=== PATIENT | female | born 1965 | race Caucasian/White ===

== ENCOUNTER 2019-10-25 10:54 | Outpatient (CLI) | payer OTHER, SELFPAY | END 2019-10-25 10:55 | disposition home or self-care (01) | LOC: RT 10:57 | PROVIDERS: Family Provider Family Medicine; PCP Family Medicine; Visit Provider Dermatology | DX: R06.02 Shortness of breath (principal) | CPT/HCPCS: 94060; J7611 ==

== ENCOUNTER → 2022-03-24 11:29 | Outpatient (BNVA) | payer MEDICAID, SELFPAY | PROVIDERS: Family Provider Family Medicine; PCP Family Medicine; Visit Provider Emergency Medicine | DX: R39.9 Unspecified symptoms and signs involving the genitourinary system (principal); N39.0 Urinary tract infection, site not specified | CPT/HCPCS: 81000 ==

== ENCOUNTER → 2022-04-22 13:18 | Outpatient (BNVA) | payer MEDICAID, SELFPAY | PROVIDERS: Family Provider Family Medicine; PCP Family Medicine; Visit Provider Family Medicine | DX: J44.9 Chronic obstructive pulmonary disease, unspecified (principal); R07.9 Chest pain, unspecified; R06.00 Dyspnea, unspecified; J44.1 Chronic obstructive pulmonary disease with (acute) exacerbation | CPT/HCPCS: 71046 ==

== ENCOUNTER → 2022-04-25 11:32 | Outpatient (BNVA) | payer MEDICAID, SELFPAY | PROVIDERS: Family Provider Family Medicine; PCP Family Medicine; Visit Provider Surgery | DX: Z12.11 Encounter for screening for malignant neoplasm of colon (principal) | CPT/HCPCS: 99024 ==

== ENCOUNTER → 2022-05-03 11:43 | Outpatient (BNVA) | payer MEDICAID, SELFPAY | PROVIDERS: Family Provider Family Medicine; PCP Family Medicine; Visit Provider Family Medicine | DX: J44.1 Chronic obstructive pulmonary disease with (acute) exacerbation (principal); N89.8 Other specified noninflammatory disorders of vagina; Z01.419 Encounter for gynecological examination (general) (routine) without abnormal findings | CPT/HCPCS: 87070; 87205; 88175 ==

== ENCOUNTER → 2022-07-07 16:46 | Outpatient (BNVA) | payer MEDICAID, SELFPAY | PROVIDERS: Family Provider Family Medicine; PCP Family Medicine; Visit Provider Family Medicine | DX: R52 Pain, unspecified (principal); R50.9 Fever, unspecified | CPT/HCPCS: 87400; 87426 ==

== ENCOUNTER → 2023-04-15 07:48 | Outpatient (BNVA) | payer MEDICAID, SELFPAY | PROVIDERS: Family Provider Family Medicine; PCP Family Medicine; Visit Provider Family Medicine | DX: Z01.419 Encounter for gynecological examination (general) (routine) without abnormal findings (principal); N89.8 Other specified noninflammatory disorders of vagina; Z13.6 Encounter for screening for cardiovascular disorders; J43.1 Panlobular emphysema; Z12.31 Encounter for screening mammogram for malignant neoplasm of breast; F17.219 Nicotine dependence, cigarettes, with unspecified nicotine-induced disorders; Z12.11 Encounter for screening for malignant neoplasm of colon; R79.89 Other specified abnormal findings of blood chemistry | CPT/HCPCS: 80053; 80061; 84443; 85025; 87070; 87205 ==

== ENCOUNTER → 2023-04-15 08:30 | Outpatient (BNVA) | payer MEDICAID, SELFPAY | PROVIDERS: Family Provider Family Medicine; PCP Family Medicine; Visit Provider Family Medicine | DX: N89.8 Other specified noninflammatory disorders of vagina (principal); Z13.6 Encounter for screening for cardiovascular disorders; J43.1 Panlobular emphysema; Z01.419 Encounter for gynecological examination (general) (routine) without abnormal findings; Z12.31 Encounter for screening mammogram for malignant neoplasm of breast; F17.219 Nicotine dependence, cigarettes, with unspecified nicotine-induced disorders; Z12.11 Encounter for screening for malignant neoplasm of colon; R79.89 Other specified abnormal findings of blood chemistry | CPT/HCPCS: 84439 ==

== ENCOUNTER → 2023-04-29 10:02 | Outpatient (BNVA) | payer MEDICAID, SELFPAY | PROVIDERS: Family Provider Family Medicine; PCP Family Medicine; Visit Provider Nurse Practitioner Family | DX: R51.9 Headache, unspecified (principal) | CPT/HCPCS: 87426 ==

== ENCOUNTER 2023-05-02 10:27 | Outpatient (CLI) | payer MEDICAID, SELFPAY ==
--- NOTE | 2023-05-02 10:45 | CT_ITS ---
WS: [id number] LDCT LUNG CANCER SCREENING TECHNIQUE: Noncontrast CT of the chest with coronal and sagittal reformatted images. CLINICAL INFORMATION: screening COMPARISON: CT chest 2017 DLP: 47.77 mGy.cm DIvol: Mean CTDIvol: 0.60 (mGy) All CT scans at [facility] use at least one of these dose optimization techniques: automat ed exposure control; mA and/or kV adjustment per patient size (includes targeted exams where dose is matched to clinical indication); or iterative reconstruction. FINDINGS: Tiny noncalcified nodule right upper lobe laterally. Slight subsegmental atelectasis in the lingula and right middle lobe. Mild thoracic curve. Mild thoracic kyphosis. Hypertrophic changes tho racic spine. Normal caliber thoracic aorta. Aortic calcification. No mediastinal or hilar lymphadenopathy. Normal GE junction. No axillary lymphadenopathy. Normal GE junction. Noncontrast spleen appears normal. Adrenal glands are normal. IMPRESSION: CT/CT lung screening [id number] LUNG-RADS: 2-Benign Appearance or Behavior FOLLOW UP: 12 Month: Continue annual screening with LDCT
--- NOTE | 2023-05-02 11:11 | MM_ITS ---
WS: [id number] BILATERAL 3D TOMOSYNTHESIS DIGITAL SCREENING MAMMOGRAPHY WITH CAD CLINICAL INFORMATION: SCREEN HISTORY: Screening mammogram. No current complaints. COMPARISON: 2019 TECHNIQUE: Bilateral CC and MLO views. FINDINGS: The breasts are composed of heterogeneous fibroglandular density tissue, which can limit the detectio n of small underlying mass lesions. No suspicious mass, asymmetry, calcifications, or architectural d istortion. No evidence of malignancy. Incidental punctate calcifications. Stable bilateral intramamma ry lymph nodes. IMPRESSION: MM/[place] [id number] BI-RADS: 2-Benign FOLLOW UP: 1 Year Follow-up Recommend return to annual screening mammography.
== END 2023-05-02 10:28 | disposition home or self-care (01) ==
PROVIDERS: PCP Family Medicine; Visit Provider Family Medicine
DX: Z12.31 Encounter for screening mammogram for malignant neoplasm of breast (principal); Z12.2 Encounter for screening for malignant neoplasm of respiratory organs; F17.219 Nicotine dependence, cigarettes, with unspecified nicotine-induced disorders
CPT/HCPCS: 71271; 77063; 77067

== ENCOUNTER → 2023-05-29 13:10 | Outpatient (BNVA) | payer MEDICAID, SELFPAY | PROVIDERS: PCP Family Medicine; Visit Provider Family Medicine | DX: E03.9 Hypothyroidism, unspecified (principal) | CPT/HCPCS: 84439; 84443 ==

== ENCOUNTER 2023-08-03 11:37 | Emergency (ER) | payer MEDICAID, SELFPAY ==
--- NOTE | 2023-08-03 11:47 | XRR_ITS ---
PROCEDURE INFORMATION: Exam: XR Right Hand Exam date and time: 08/03/2023 12:25 PM Age: 58 years old Clinical indication: Injury or trauma; Fall; Patient HX: RT hand/wrist pain/swelling/brusing post foosh TECHNIQUE: Imaging protocol: Radiologic exam of the right hand. Views: 3 or more views. COMPARISON: No relevant prior studies available. FINDINGS: Bones/joints: Comminuted fractures through the distal radius without significant displacement with horizontal, oblique, and vertical components. There is an oblique nondisplaced fracture through the base of the ulnar styloid. Multi-articular primary osteoarthritic changes including joint space narrowing, subchondral cystic/sclerotic changes, and marginal osteophyte formations. Soft tissues: Edema and/or hematoma is present in the soft tissues adjacent to the fracture sites. XR/XR hand RT min 3V* [id number] IMPRESSION: There are fractures through the distal radius and ulna as described above with adjacent soft tissue changes.
--- NOTE | 2023-08-03 11:47 | XRR_ITS ---
PROCEDURE INFORMATION: Exam: XR Right Wrist Exam date and time: 08/03/2023 12:25 PM Age: 58 years old Clinical indication: Injury or trauma; Fall; Patient HX: RT hand/wrist pain/swelling/brusing post foosh TECHNIQUE: Imaging protocol: Radiologic exam of the right wrist. Views: 3 or more views. COMPARISON: No relevant prior studies available. FINDINGS: Bones/joints: Comminuted nondisplaced hairline fractures through the distal radius with horizontal, oblique, and vertical components. Predominantly horizontally oriented. There is an oblique nondisplaced fracture through the base of the ulnar styloid. Multi-articular primary osteoarthritic changes including joint space narrowing, subchondral cystic/sclerotic changes, and marginal osteophyte formations. Soft tissues: Edema and/or hematoma is present in the soft tissues adjacent to the fracture sites. XR/XR wrist RT min 3V* [id number] IMPRESSION: There are fractures through the distal radius and ulna as described above.
[2023-08-03 11:48] VITALS: BP 148/91; PULSE 80; RESP 17; TEMP 37.2; O2SAT 98; BMI 19.5
--- NOTE | 2023-08-03 11:48 | ED_ITS ---
HPI - Trauma General: Stated Complaint: Wrist pain Time Seen by Provider: 08/03/23 11:44 History of Present Illness: 58-year-old female presents emergency room with right hand and wrist pain that started yesterday after sustaining a fall around 5 PM. Patient described pain as throbbing/sharp sensation with severity of 7 out of 10. Increased pain with range of motion of movement. PFS ED PFSH: Medical History COPD (chronic obstructive pulmonary disease) Surgical History H/O tubal ligation Family History Other Cancer Chronic kidney disease (CKD) Diabetes Hyperlipidemia Hypertension Lung disease Denies family history of CAD (coronary artery disease) Clotting disorder Dementia Psychiatric illness Suicide Anesthesia complication Bleeding disorder Family history of premature coronary artery disease Stroke Social History Smoking and tobacco/nicotine status: current every day tobacco/nicotine user cigarettes Packs smoked per day: 0.5 Years cigarettes smoked: 45 Alcohol intake: current Alcohol intake frequency: few times a week Alcohol type: beer Substance/Drug Use: never Lives independently: No Household members: none Marital status: / Discharge Plan Discharge Condition: Stable Prescriptions: No Action Anoro Ellipta 62.5-25 mcg/actuation blister with device 1 inh inhalation DAILY Qty: 60 5RF Premarin 0.625 mg/gram cream See Rx Instructions vaginal .COMPLEX Qty: 30 3RF Rx Instructions: vaginally; Use nightly for two weeks, then three times a week at night albuterol sulfate 90 mcg/actuation HFA aerosol inhaler 2 puff inhalation Q6H PRN (Reason: shortness of breath or wheezing) Qty: 6.7 0RF levothyroxine 25 mcg capsule 25 mcg PO DAILY Qty: 90 1RF Referrals: Sharon Brown DO [Primary Care Provider] - Coding Level of Care Code ED Boiler Coverer Helper for Latoya Sandra
--- NOTE | 2023-08-03 11:50 | W.ED.UPPEXIN ---
HPI - Extremity Injury (Upper) General: Chief Complaint: Extremity Injury, Upper Stated Complaint: Wrist pain Time Seen by Provider: 08/03/23 11:44 Source: patient Mode of arrival: ambulatory Limitations: no limitations History of Present Illness: 58-year-old female states that she tripped over her dog last night landed on her right wrist. States she had right wrist pain since then pain sharp in nature rates it a 7 out of 10 states it is worse with movement improved with rest denies any other injuries from her fall. Associated symptoms: Denies neck pain Review of Systems Const: Denies: fever(s), chills, body aches or change in appetite ENMT: Denies: throat pain or dental pain Card: Denies: chest pain Resp: Denies: dyspnea GI: Denies: abdominal pain, nausea, vomiting or diarrhea : Denies: dysuria Musc: Reports: extremity pain; Denies: neck pain or back pain Skin/Breast: Denies: rash Neuro: Denies: headache(s) PFSH ED PFSH: Medical History COPD (chronic obstructive pulmonary disease) Surgical History H/O tubal ligation Family History Other Cancer Chronic kidney disease (CKD) Diabetes Hyperlipidemia Hypertension Lung disease Denies family history of CAD (coronary artery disease) Clotting disorder Dementia Psychiatric illness Suicide Anesthesia complication Bleeding disorder Family history of premature coronary artery disease Stroke Social History Smoking and tobacco/nicotine status: current every day tobacco/nicotine user cigarettes Packs smoked per day: 0.5 Years cigarettes smoked: 45 Alcohol intake: current Alcohol intake frequency: few times a week Alcohol type: beer Substance/Drug Use: never Lives independently: No Household members: none Marital status: / Physical Exam Const: COMMON NORMALS: no acute distress, patient oriented x3 and healthy appearing HENMT: COMMON NORMALS: normocephalic and atraumatic HEAD & SCALP: normocephalic and atraumatic Neck/C-Spine: COMMON NORMALS: full ROM and supple Chest: COMMONS NORMALS: normal inspection of the chest Resp: COMMON NORMALS: normal respiratory effort Cardio: COMMON NORMALS: regular rate, regular rhythm and No murmurs present (Cardio) RATE: regular rate RHYTHM: regular rhythm Extremity: NARRATIVE EXTREMITY EXAM: Tenderness over right wrist distal pulses sensation intact Neuro: COMMON NORMALS: patient oriented x3, moves all extremities and no focal motor deficits Psych: COMMON NORMALS: mental status grossly normal, Normal thought process present and cooperative THOUGHT PROCESS: Normal thought process present Skin: COMMON NORMALS: no rashes or lesions noted and no wounds GENERAL SKIN EXAM: no rashes or lesions noted Course Vital Signs: Vital signs: Vital Signs Temperature 98.9 F 08/03/23 11:48 Pulse Rate 80 08/03/23 11:48 Respiratory Rate 18 08/03/23 11:55 Blood Pressure 148/91 08/03/23 11:48 Pulse Oximetry 94 08/03/23 11:55 Oxygen Delivery Me thod Room Air 08/03/23 11:48 MDM - Extremity Injury (Upper) Medical Decision Making Patient presents here with a right wrist fracture from a fall we will place in a splint we will get follow-up with orthopedics. Medical Records I reviewed the patient's medical records. XR interpretation done by ED provider, pending radiology final review ED provider radiology interpretation(s): xrwrist: distal radius fx Discharge Plan Discharge Patient Disposition: Home Clinical Impression: Fracture of wrist Condition: Stable Prescriptions: New hydrocodone-acetaminophen 5-325 mg tablet 1 tab PO Q6H PRN (Reason: pain) Qty: 14 0RF No Action Anoro Ellipta 62.5-25 mcg/actuation blister with device 1 inh inhalation DAILY Qty: 60 5RF Premarin 0.625 mg/gram cream See Rx Instructions vaginal .COMPLEX Qty: 30 3RF Rx Instructions: vaginally; Use nightly for two weeks, then three times a week at night albuterol sulfate 90 mcg/actuation HFA aerosol inhaler 2 puff inhalation Q6H PRN (Reason: shortness of breath or wheezing) Qty: 6.7 0RF levothyroxine 25 mcg capsule 25 mcg PO DAILY Qty: 90 1RF Discharge Orders: Discharge ED (Routine); Ordered 08/03/23 Ordered By: Jason Montes Referrals: Ham Jim, [Physician] - 1-3 days Sharon Brown DO [Primary Care Provider] - Discharge Diet: Advance as tolerated Discharge Activity: Resume usual activity Patient Instructions: Wrist Fracture in Adults (ED), Opioid Safety Coding Level of Care Code ED Foreign Languages Professor for Latoya Sandra
[2023-08-03 11:55] VITALS: RESP 18; O2SAT 94
[2023-08-03] MEDS: oxyCODONE-APAP 5-325 mg Tablet 1 TAB PO (11:55)
--- NOTE | 2023-08-04 07:20 | DCPLANNER ---
Message sent to Ortho for follow up on a wrist Fx.
== END 2023-08-03 13:23 | disposition home or self-care (01) ==
PROVIDERS: Emergency Provider Emergency Medicine; PCP Family Medicine
DX: S52.591A Other fractures of lower end of right radius, initial encounter for closed fracture (principal); S52.614A Nondisplaced fracture of right ulna styloid process, initial encounter for closed fracture; W01.0XXA Fall on same level from slipping, tripping and stumbling without subsequent striking against object, initial encounter; J44.9 Chronic obstructive pulmonary disease, unspecified; F17.210 Nicotine dependence, cigarettes, uncomplicated
CPT/HCPCS: 73110; 73130; 99283

== ENCOUNTER → 2023-08-05 14:25 | Outpatient (BNVA) | payer MEDICAID, SELFPAY | PROVIDERS: PCP Family Medicine; Referring Provider Emergency Medicine; Visit Provider Physician Assistant | DX: S52.501A Unspecified fracture of the lower end of right radius, initial encounter for closed fracture (principal); S52.614A Nondisplaced fracture of right ulna styloid process, initial encounter for closed fracture; W01.0XXA Fall on same level from slipping, tripping and stumbling without subsequent striking against object, initial encounter | CPT/HCPCS: 73110 ==

== ENCOUNTER 2023-08-05 15:13 | Outpatient (CLI) | payer MEDICAID, SELFPAY | END 2023-08-05 15:14 | disposition home or self-care (01) | LOC: SPT 15:14 | PROVIDERS: PCP Family Medicine; Visit Provider Physician Assistant | DX: Z46.89 Encounter for fitting and adjustment of other specified devices (principal); S52.501D Unspecified fracture of the lower end of right radius, subsequent encounter for closed fracture with routine healing; S52.601D Unspecified fracture of lower end of right ulna, subsequent encounter for closed fracture with routine healing; X58.XXXD Exposure to other specified factors, subsequent encounter | CPT/HCPCS: 97760; L3982 ==

== ENCOUNTER → 2023-09-24 11:06 | Outpatient (BNVA) | payer MEDICAID, SELFPAY | PROVIDERS: PCP Family Medicine; Visit Provider Physician Assistant | DX: S52.501D Unspecified fracture of the lower end of right radius, subsequent encounter for closed fracture with routine healing (principal); X58.XXXD Exposure to other specified factors, subsequent encounter; S52.601D Unspecified fracture of lower end of right ulna, subsequent encounter for closed fracture with routine healing | CPT/HCPCS: 73110 ==

== ENCOUNTER → 2023-10-21 15:15 | Outpatient (BNVA) | payer MEDICAID, SELFPAY | PROVIDERS: PCP Family Medicine; Visit Provider Orthopaedic Surgery | DX: S52.501D Unspecified fracture of the lower end of right radius, subsequent encounter for closed fracture with routine healing; S52.601D Unspecified fracture of lower end of right ulna, subsequent encounter for closed fracture with routine healing; X58.XXXD Exposure to other specified factors, subsequent encounter | CPT/HCPCS: 73110 ==

== ENCOUNTER → 2023-12-01 13:07 | Outpatient (BNVA) | payer MEDICAID, SELFPAY | PROVIDERS: PCP Family Medicine; Visit Provider Family Medicine | DX: E03.9 Hypothyroidism, unspecified (principal) | CPT/HCPCS: 84443 ==

== ENCOUNTER → 2023-12-30 15:26 | Outpatient (BNVA) | payer MEDICAID, SELFPAY | PROVIDERS: PCP Family Medicine; Referring Provider Family Medicine; Visit Provider Nurse Practitioner Women's Health | DX: N89.8 Other specified noninflammatory disorders of vagina (principal) | CPT/HCPCS: 87491; 87591 ==

== ENCOUNTER → 2024-01-01 14:40 | Outpatient (BNVA) | payer MEDICAID, SELFPAY | PROVIDERS: PCP Family Medicine; Visit Provider Orthopaedic Surgery | DX: S52.501D Unspecified fracture of the lower end of right radius, subsequent encounter for closed fracture with routine healing (principal); S52.601D Unspecified fracture of lower end of right ulna, subsequent encounter for closed fracture with routine healing; X58.XXXD Exposure to other specified factors, subsequent encounter | CPT/HCPCS: 73110 ==

== ENCOUNTER → 2024-02-05 13:28 | Outpatient (BNVA) | payer MEDICAID, SELFPAY | PROVIDERS: PCP Family Medicine; Visit Provider Orthopaedic Surgery | DX: S52.501D Unspecified fracture of the lower end of right radius, subsequent encounter for closed fracture with routine healing (principal); S52.601D Unspecified fracture of lower end of right ulna, subsequent encounter for closed fracture with routine healing; M25.531 Pain in right wrist; X58.XXXD Exposure to other specified factors, subsequent encounter | CPT/HCPCS: 73110 ==

== ENCOUNTER → 2024-03-26 19:04 | Outpatient (BNVA) | payer MEDICAID, SELFPAY | PROVIDERS: PCP Family Medicine; Visit Provider Emergency Medicine | DX: R39.9 Unspecified symptoms and signs involving the genitourinary system (principal) | CPT/HCPCS: 81000 ==

== ENCOUNTER → 2024-04-21 11:52 | Outpatient (BNVA) | payer MEDICAID, SELFPAY | PROVIDERS: PCP Family Medicine; Visit Provider Nurse Practitioner Family | DX: Z76.89 Persons encountering health services in other specified circumstances (principal); E03.9 Hypothyroidism, unspecified; R53.83 Other fatigue; R30.0 Dysuria | CPT/HCPCS: 81000 ==

== ENCOUNTER 2024-04-26 10:38 | Emergency (ER) | payer MEDICAID, SELFPAY ==
[2024-04-26 10:44] VITALS: BP 151/96; PULSE 86; TEMP 36.4; O2SAT 98; BMI 19.5
--- NOTE | 2024-04-26 11:00 | ED_ITS ---
HPI - Female Genitourinary 2 General: Chief complaint: Urogenital-Female Stated complaint: bladder trouble Time Seen by Provider: 04/26/24 10:49 Source: patient Mode of arrival: ambulatory Limitations: no limitations History of Present Illness: 58-year-old female states that she is robles ving some bilateral flank pain and weakness states been going on for weeks states she has been on antibiotics for a UTI. She states she is feels fatigued she denies any severe pain rates pain a 2 out of 10 denies any vaginal discharge denies any vomiting or diarrhea. Associated symptoms: Deny abdominal pain, headache(s) or nausea Review of Systems 2 Const: Denies: fever(s), chills, body aches or change in appetite ENMT: Denies: throat pain or dental pain Card: Denies: chest pain Resp: Denies: dyspnea GI: Denies: abdominal pain, nausea, vomiting or diarrhea : Reports: flank pain and dysuria Musc: Denies: neck pain or back pain Skin/Breast: Denies: rash Neuro: Denies: headache(s) PFSH ED 2 PFSH: Medical History Fatigue Hypothyroidism COPD (chronic obstructive pulmonary disease) Surgical History H/O tubal ligation Family History Other Cancer Chronic kidney disease (CKD) Diabetes Hyperlipidemia Hypertension Lung disease Denies family history of CAD (coronary artery disease) Clotting disorder Dementia Psychiatric illness Suicide Anesthesia complication Bleeding disorder Family history of premature coronary artery disease Stroke Social History Smoking and tobacco/nicotine status: current every day tobacco/nicotine user cigarettes Packs smoked per day: 0.5 Years cigarettes smoked: 45 Alcohol intake: current Alcohol intake frequency: few times a week Alcohol type: beer Substance/Drug Use: never Lives independently: No Household members: none Marital status: / Physical Exam 2 Const: COMMON NORMALS: no acute distress, patient oriented x3 and healthy appearing HENMT: COMMON NORMALS: normocephalic and atraumatic HEAD & SCALP: n ormocephalic and atraumatic Neck/C-Spine: COMMON NORMALS: full ROM and supple Chest: COMMONS NORMALS: normal inspection of the chest Resp: COMMON NORMALS: normal respiratory effort Cardio: COMMON NORMALS: regular rate, regular rhythm and No murmurs present (Cardio) RATE: regular rate RHYTHM: regular rhythm GI: COMMON NORMALS: Normal to inspection, nondistended, normoactive bowel sounds present, Soft to palpation, non-tender and no masses PALPATION: Yes Soft to palpation Extremity: COMMON NORMALS: normal to inspection and full ROM Neuro: COMMON NORMALS: patient oriented x3, moves all extremities and no focal motor deficits Psych: COMMON NORMALS: mental status grossly normal, Normal thought process present and cooperative THOUGHT PROCESS: Normal thought process present Skin: COMMON NORMALS: no rashes or lesions noted and no wounds GENERAL SKIN EXAM: no rashes or lesions noted Course 2 Vital Signs: Vital signs: Vital Signs Temperature 97.5 F L 04/26/24 10:44 Pulse Rate 81 04/26/24 12:19 Respiratory Rate 16 04/26/24 11:21 Blood Pressure 131/69 04/26/24 12:19 Pulse Oximetry 97 04/26/24 12:19 Oxygen Delivery Me thod Room Air 04/26/24 12:19 MDM - Female Medical Decision Making Patient presents here with bilateral flank pain could be muscular blood work urinalysis CT scan showed no acute abnormality she is to follow-up with PCP return if worsening she understands agrees to plan. Medical Records I reviewed the patient's medical records. Lab Data I reviewed the patient's lab results. 04/26/24 11:37 04/26/24 11:37 Radiology Impressions Abdomen/Pelvis CT 04/26/24 11:44 IMPRESSION: 1. No renal obstruction or significant perinephric stranding. 2. No GI tract obstruction. 3. Stomach is markedly distended with food products with diffuse wall thickening. There may be a partial outlet obstruction or gastritis. Evaluation of the stomach is difficult without contrast. 4. No ascites or free air. Laboratory Results WBC 7.01 10^3/uL (3.29-11.43) 04/26/24 11:37 RBC 4.29 10^6/uL (3.85-5.65) 04/26/24 11:37 Hgb 14.30 g/dL (11.27-16.99) 04/26/24 11:37 Hct 43.1 % (36-47) 04/26/24 11:37 MCV 100.5 fl (85-98) H 04/26/24 11:37 MCH 33.3 pg (27-33) H 04/26/24 11:37 MCHC 33.2 g/dL (30-55) 04/26/24 11:37 RDW 11.8 % (12.1-15.1) L 04/26/24 11:37 Plt Count 322 10^3/cmm (157-399) 04/26/24 11:37 MPV 8.7 fL (7.4-10.4) 04/26/24 11:37 Neut % (Auto) 58.1 % 04/26/24 11:37 Lymph % (Auto) 28.2 % 04/26/24 11:37 Lamar % (Auto) 9.4 % 04/26/24 11:37 Eos % (Auto) 3.1 % 04/26/24 11:37 Baso % (Auto) 0.9 % 04/26/24 11:37 Neut # (Auto) 4.07 10^3/uL (1.8-7.7) 04/26/24 11:37 Lymph # (Auto) 2.0 10^3/uL (0.8-4.8) 04/26/24 11:37 Lamar # (Auto) 0.7 10^3/uL (0.2-0.9) 04/26/24 11:37 Eos # (Auto) 0.2 10^3/uL (0.0-0.8) 04/26/24 11:37 Baso # (Auto) 0.1 10^3/uL (0.0-0.1) 04/26/24 11:37 Nucleated RBC % (auto) 0 % 04/26/24 11:37 Nucleated RBCs # 0.0 /100WBC 04/26/24 11:37 Sodium 139 mmol/L (136-145) 04/26/24 11:37 Potassium 3.6 mmol/L (3.5-5.1) 04/26/24 11:37 Chloride 104 mmol/L (98-107) 04/26/24 11:37 Carbon Dioxide 24 mmol/L (22-29) 04/26/24 11:37 Anion Gap 14.6 (5-19) 04/26/24 11:37 BUN 11 mg/dL (6-20) 04/26/24 11:37 Creatinine 0.7 mg/dL (0.5-0.9) 04/26/24 11:37 GFR Calculation 85.6 mL/min (90-130) L 04/26/24 11:37 Glucose 91 mg/dL (65-115) 04/26/24 11:37 Calculated Osmolality 287 mOsm/kg (285-295) 04/26/24 11:37 Calcium 8.7 mg/dL (8.5-10.5) 04/26/24 11:37 Total Bilirubin 0.2 mg/dL (0.15-1.2) 04/26/24 11:37 AST 17 U/L (0-32) 04/26/24 11:37 ALT 11 U/L (0-33) 04/26/24 11:37 Alkaline Phosphatase 103 U/L (35-105) 04/26/24 11:37 Total Protein 6.8 g/dL (6.6-8.7) 04/26/24 11:37 Albumin 3.6 g/dL (3.5-5.2) 04/26/24 11:37 Globulin 3.2 g/dL (1.3-4.6) 04/26/24 11:37 Lipase 27 U/L (13-60) 04/26/24 11:37 Urine Color Yellow (Yellow) 04/26/24 11:12 Urine Appearance Clear (CLEAR) 04/26/24 11:12 Urine pH 5.5 (5-7) 04/26/24 11:12 Ur Specific Leggett 1.015 (1.005-1.030) 04/26/24 11:12 Urine Protein Trace (Negative) A 04/26/24 11:12 Urine Glucose (UA) Negative (Normal) 04/26/24 11:12 Urine Ketones Negative (Negative) 04/26/24 11:12 Urine Blood 3+ (Negative) A 04/26/24 11:12 Urine Nitrate Negative (Negative) 04/26/24 11:12 Urine Bilirubin Negative (Negative) 04/26/24 11:12 Urine Urobilinogen 1.0 mg/dL (Negative) 04/26/24 11:12 Ur Leukocyte Esterase 1+ (Negative) A 04/26/24 11:12 Urine RBC >100 /hpf (0-2) H 04/26/24 11:12 Urine WBC 0-5 /hpf (0-5) 04/26/24 11:12 Ur Squamous Epith Cells 6-10 /hpf (0-5) 04/26/24 11:12 Amorphous Sediment Not Reportable 04/26/24 11:12 Urine Bacteria None seen /hpf (NONE) 04/26/24 11:12 Hyaline Casts 0.40 /lpf 04/26/24 11:12 All radiology interpretation(s) finalized by discharge Discharge Plan Discharge Patient Disposition: Home Clinical Impression: Flank pain Condition: Stable Prescriptions: No Action Anoro Ellipta 62.5-25 mcg/actuation blister with device 1 inh inhalation DAILY Qty: 60 5RF (DME) FAST FORM COCK UP SPLINT. See Rx Instructions .Route .MEDSUPPLY Qty: 1 0RF Rx Instructions: As directed valacyclovir 500 mg tablet 500 mg PO BID Qty: 6 0RF lidocaine 5 % ointment 1 applic topical DAILY PRN (Reason: pain) Qty: 30 0RF nicotine 21 mg/24 hr patch 24 hour 1 patch transdermal DAILY Qty: 28 2RF nitrofurantoin monohyd/m-cryst [Macrobid] 100 mg capsule 100 mg PO Q12H 5 Days Qty: 10 0RF Rx Instructions: must administer with a meal/food Premarin 0.625 mg/gram cream See Rx Instructions vaginal .COMPLEX Qty: 30 3RF Rx Instructions: vaginally; Use nightly for two weeks, then three times a week at night albuterol sulfate 90 mcg/actuation HFA aerosol inhaler 2 puff inhalation Q6H PRN (Reason: shortness of breath or wheezing) Qty: 6.7 5RF levothyroxine 25 mcg capsule 25 mcg PO DAILY Qty: 90 1RF metronidazole 500 mg tablet 500 mg PO BID 7 Days Qty: 14 0RF Discharge Orders: Discharge ED (Routine); Ordered 04/26/24 Ordered By: Jason Montes Referrals: Sharon Brown DO [Primary Care Provider] - Discharge Diet: Advance as tolerated Discharge Activity: Resume usual activity Patient Instructions: Flank Pain (ED) Coding Level of Care Code ED Title Attorney for Latoya Sandra
[2024-04-26] MEDS: sodium chloride 0.9% 1,000 ML 999 ML IV (11:18)
[2024-04-26 11:21] VITALS: BP 137/77; PULSE 81; RESP 16; O2SAT 95
[2024-04-26 11:29] LABS: Charge for UA Resulting for Rev
[2024-04-26 11:32] LABS: Bilirubin Urine Negative (Negative); Blood Urine 3+ (Negative); Glucose Urine UA Negative (Normal); Ketones Urine Negative (Negative); Leukocyte Esterase Urine 1+ (Negative); Nitrate Urine Negative (Negative); Protein Urine Trace (Negative); Specific Gravity, Urine 1.015 (1.005-1.030); Urine Appearance Clear (CLEAR); Urine Color Yellow (Yellow); pH Urine 5.5 (5-7)
[2024-04-26 11:37] LABS: Bacteria Urine None Seen /hpf; RBC Urine >100 /hpf (0-2); WBC Urine 0-5 /hpf (0-5)
[2024-04-26 11:40] LABS: Add Urine Culture? Yes
[2024-04-26 11:44] LABS: Basophils # 0.1 10^3/uL (0.0-0.1); Basophils % 0.9 %; Eosinophils # 0.2 10^3/uL (0.0-0.8); Eosinophils % 3.1 %; Hematocrit 43.1 % (36-47); Lymphocytes % 28.2 %; Mean Corpuscular HGB Conc 33.2 g/dL (30-55); Mean Corpuscular Hemoglobin 33.3 pg (27-33); Mean Corpuscular Volume 100.5 fl (85-98); Mean Platelet Volume 8.7 fL (7.4-10.4); Monocytes # 0.7 10^3/uL (0.2-0.9); Monocytes % 9.4 %; Neutrophils # 4.07 10^3/uL (1.8-7.7); Neutrophils % 58.1 %; Nucleated Red Blood Cells % 0 %; Platelet Count 322 10^3/cmm (157-399); Red Blood Count 4.29 10^6/uL (3.85-5.65); Red Cell Distribution Width 11.8 % (12.1-15.1); White Blood Count 7.01 10^3/uL (3.29-11.43)
--- NOTE | 2024-04-26 11:44 | CT_ITS ---
WS: [id number] CT ABDOMEN AND PELVIS NONCONTRAST HISTORY: flank pain, RIGHT. TECHNIQUE: Imaging performed through the abdomen and pelvis. Coronal and sagittal reformats are submi tted. All CT scans at [facility] use at least one of these dose optimization techniques: auto mated exposure control; mA and/or kV adjustment per patient size (includes targeted exams where dose is matched to clinical indication); or iterative reconstruction. DLP: 348.13 mGy.cm COMPARISON: None available. Lower thorax: Bibasilar areas of linear scarring or atelectasis. No pneumonia. Normal size heart. Sma ll hiatal hernia. Liver: Normal size liver. No mass or bile duct dilatation. Gallbladder: Normal gallbladder. No pericholecystic fluid or cholelithiasis. No gallbladder wall thic kening. Pancreas: Normal size and attenuation. Normal pancreatic duct. No pancreatitis or mass. Spleen: Normal. Adrenal glands: Normal. No mass. Right kidney: Normal size kidney. Very minimal perinephric stranding. No obstruction. No ureteral gisela cification. Left kidney: Minimal perinephric stranding with no obstruction. Aorta: Mild atherosclerosis abdominal aorta with no aneurysm. No free fluid, intraperitoneal air or significant lymphadenopathy. GI tract: Stomach is overly distended with food products. There is mild diffuse wall thickening of th e stomach. No small bowel obstruction. No appendicitis. No diverticulitis. Abdominal wall: Small umbilical hernia contains fat only. Pelvis: No free fluid in the pelvis. There are a few small inguinal lymph nodes. No adenopathy. Osseous structures: Unremarkable. CT/CT kidney stone [id number] IMPRESSION: 1. No renal obstruction or significant perinephric stranding. 2. No GI tract obstruction. 3. Stomach is markedly distended with food products with diffuse wall thickeni ng. There may be a partial outlet obstruction or gastritis. Evaluation of the s tomach is difficult without contrast. 4. No ascites or free air.
[2024-04-26 12:05] LABS: Alanine Aminotransferase 11 U/L (0-33); Albumin Level 3.6 g/dL (3.5-5.2); Alkaline Phosphatase 103 U/L (35-105); Anion Gap 14.6 (5-19); Aspartate Amino Transferase 17 U/L (0-32); Blood Urea Nitrogen 11 mg/dL (6-20); Calcium 8.7 mg/dL (8.5-10.5); Carbon Dioxide 24 mmol/L (22-29); Chloride 104 mmol/L (98-107); Creatinine Clr Calc Pharmacy 78.5956; Globulin 3.2 g/dL (1.3-4.6); Glomerular Filtration Rate 85.6 mL/min (90-130); Glucose 91 mg/dL (65-115); Lipase 27 U/L (13-60); Osmolality Calculated 287 mOsm/kg (285-295); Potassium 3.6 mmol/L (3.5-5.1); Sodium 139 mmol/L (136-145); Total Bilirubin 0.2 mg/dL (0.15-1.2); Total Protein 6.8 g/dL (6.6-8.7)
[2024-04-26 12:19] VITALS: BP 131/69; PULSE 81; O2SAT 97
[2024-04-26 12:52] VITALS: BP 130/73; PULSE 83; O2SAT 96
== END 2024-04-26 12:43 | disposition home or self-care (01) ==
PROVIDERS: Emergency Provider Emergency Medicine; PCP Family Medicine
DX: R39.89 Other symptoms and signs involving the genitourinary system (principal); F17.210 Nicotine dependence, cigarettes, uncomplicated
CPT/HCPCS: 36415; 74176; 80053; 81003; 81015; 83690; 85025; 87086; 99284; J7030

== ENCOUNTER 2024-04-28 08:47 | Outpatient (CLI) | payer MEDICAID, SELFPAY ==
--- NOTE | 2024-04-28 09:00 | CT_ITS ---
WS: [id number] LDCT LUNG CANCER SCREENING HISTORY: R91.1 - Solitary pulmonary nodule TECHNIQUE: Axial imaging performed from the apices to 1 cm below the costophrenic angles. Coronal and sagittal reformats are submitted with axial MIP series. All CT scans at [facility] use at least one of these dose optimization techniques: automated exposure control; mA and/or kV adjustment per patient size (includes targeted exams where dose is matched to clinical indication); or iterativ e reconstruction. DLP: 41.20 mGy.cm DIvol: Mean CTDIvol: 0.70 (mGy) COMPARISON: 05/02/2023 Diagnostic quality: Satisfactory Lungs: Lungs are well aerated. There are a few small pleural tags in pulmonary fibrosis at the lung a pices which are stable. Benign granuloma posterior LEFT upper lobe. No new mass or increasing size of any of the micronodules. No endobronchial lesions. Heart: Normal size heart with no pericardial effusion.. Other findings: Mild atherosclerosis thoracic aorta. Normal size pulmonary artery. No adenopathy. Sma ll benign axillary lymph nodes. Small hiatal hernia. No adrenal mass. Mild increase in thoracic kypho sis. CT/CT lung screening [id number] IMPRESSION: LUNG-RADS: 2-Benign Appearance or Behavior FOLLOW UP: 12 Month: Continue annual screening with LDCT OTHER FINDINGS (S MODIFIER): None.
== END 2024-04-28 08:48 | disposition home or self-care (01) ==
LOC: RAD 08:48
PROVIDERS: PCP Nurse Practitioner Family; Visit Provider Nurse Practitioner Family
DX: Z12.2 Encounter for screening for malignant neoplasm of respiratory organs (principal); R91.1 Solitary pulmonary nodule; F17.219 Nicotine dependence, cigarettes, with unspecified nicotine-induced disorders; J43.1 Panlobular emphysema; J84.10 Pulmonary fibrosis, unspecified; I70.0 Atherosclerosis of aorta; K44.9 Diaphragmatic hernia without obstruction or gangrene; M40.204 Unspecified kyphosis, thoracic region
CPT/HCPCS: 71271

== ENCOUNTER 2024-05-21 21:05 | Observation (INO) | payer MEDICAID, SELFPAY ==
[2024-05-21 21:43] VITALS: BP 157/86; PULSE 102; RESP 24; TEMP 36.3; O2SAT 98; BMI 19.0
[2024-05-22] VITALS (9 sets, daily range): BP systolic 123–157; BP diastolic 68–97; PULSE 69–91; RESP 10–20; TEMP 36.3–36.9; O2SAT 95–100
[2024-05-22] MEDS: glucagon 1 mg/mL KIT 1 mL IVP (03:04)
[2024-05-22] MEDS: nitroglycerin 0.4 mg sublingual Tablet SUBLINGUAL (03:04)
[2024-05-22] MEDS: morphine 4 mg/mL SDV 1 mL IVP ×2 (03:42→11:24)
[2024-05-22] MEDS: haloperidol inj 5 mg/mL INJ 1 mL 3 MG IVP (03:42)
[2024-05-22] MEDS: sodium chloride 0.9% 1,000 ML 100 ML IV (05:00)
--- NOTE | 2024-05-22 06:22 | ED_ITS ---
HPI - General Adult General: Chief complaint: Airway/Esophagus Foreign Body Stated complaint: FO in throat Time Seen by Provider: 05/22/24 02:26 History of Present Illness: 58-year-old female presenting after eati ng pork. She feels like a piece got stuck in her throat. She has no prior history of esophageal stricture. She is handling some of her own secretions, but has vomited several times without relief of her discomfort. Related Data Previous Rx's Medication Instructions Recorded albuterol sulfate 90 mcg/actuation 2 puff inhalation Q6H PRN 12/01/23 aerosol inhaler shortness of breath or wheezing #6.7 grams umeclidinium 62.5 mcg-vilanterol 1 inh inhalation DAILY #60 ea 12/01/23 25 mcg/actuation powdr for inhalation (Anoro Ellipta) levothyroxine 25 mcg capsule 25 mcg PO DAILY #90 caps 12/02/23 nicotine 21 mg/24 hr daily 1 patch transdermal DAILY #28 ea 04/21/24 transdermal patch nitrofurantoin 100 mg PO Q12H 5 days #10 caps 04/21/24 monohydrate/macrocrystals 100 mg capsule (Macrobid) Allergies Allergy/AdvReac Type Severity Reaction Status Date / Time No Known Allergies Allergy Verified 04/26/24 10:48 FORMERLY [facility] ED PFSH: Medical History Fatigue Hypothyroidism COPD (chronic obstructive pulmonary disease) Surgical History H/O tubal ligation Family History Other Cancer Chronic kidney disease (CKD) Diabetes Hyperlipidemia Hypertension Lung disease Denies family history of CAD (coronary artery disease) Clotting disorder Dementia Psychiatric illness Suicide Anesthesia complication Bleeding disorder Family history of premature coronary artery disease Stroke Social History Smoking and tobacco/nicotine status: current every day tobacco/nicotine user cigarettes Packs smoked per day: 0.5 Years cigarettes smoked: 45 Alcohol intake: current Alcohol intake frequency: few times a week Alcohol type: beer Substance/Drug Use: never Lives independently: No Household members: none Marital status: / Physical Exam Const: GENERAL APPEARANCE: cooperative, anxious and ill appearing; not comfortable and not frail appearing HENMT: COMMON NORMALS: normocephalic, atraumatic and Normal external nose present HEAD & SCALP: normocephalic and atraumatic FACE & SINUS: normal facial exam and face symmetric NOSE: Normal external nose present Eye: COMMON NORMALS: Equal, round and reactive pupils present and EOMs intact bilaterally PUPIL: Yes Equal, round and reactive pupils present Neck/C-Spine: GENERAL: Yes trachea midline Chest: CHEST: Yes Symmetrical chest wall rise Resp: COMMON NORMALS: normal respiratory effort, No retractions, No use of accessory muscles and clear to auscultation bilaterally AUSCULTATION: clear to auscultation bilaterally Cardio: COMMON NORMALS: regular rate and regular rhythm RATE: regular rate RHYTHM: regular rhythm GI: COMMON NORMALS: Normal to inspection, nondistended, normoactive bowel sounds present Extremity: COMMON NORMALS: no pedal edema Neuro: RUFINO COMA SCALE: document GCS findings Rufino coma scale eye opening: Spontaneous Rufino coma scale verbal response: Orientated Rufino coma scale motor response: Obey commands Winslow coma scale total score: 15 SENSORY EXAM: Yes extremities (intact) Psych: COMMON NORMALS: speech normal SPEECH: Yes normal speech Skin: COMMON NORMALS: no rashes or lesions noted GENERAL SKIN EXAM: no rashes or lesions noted Course Vital Signs: Vital signs: Vital Signs Temperature 97.4 F L 05/22/24 12:14 Pulse Rate 71 05/22/24 12:24 Respiratory Rate 16 05/22/24 12:24 Blood Pressure 140/71 05/22/24 12:24 Pulse Oximetry 100 05/22/24 12:24 Oxygen Delivery Me thod Room Air, Simple Mask 05/22/24 12:24 Oxygen Flow Rate 6 05/22/24 12:14 MDM - General Adult Medical Decision Making Patient presents with signs and symptoms of esophageal food bolus. She was given glucagon, nitroglycerin, and told to go as well as soda. She vomited the soda, without relief of her symptoms. She continues to vomit small amounts, mainly saliva. Spoke with surgery. Recommendations are observation, with procedure a bit later this morning. He will come and evaluate the patient to determine best treatment, which is likely EGD. Holdover orders are written. No radiology studies performed this visit Discharge Plan Discharge Patient Disposition: Placed in Observation Admit Provider: Oracio Corado Clinical Impression: Food impaction of esophagus Coding Level of Care Code ED Registered Nurse Bone Marrow Transplant for g Joyc
--- NOTE | 2024-05-22 11:44 | PC.NURSE ---
Pt taken off med surg floor via wheelchair to pre op by JORGE Ragland at 1138am.
--- NOTE | 2024-05-22 11:56 | PM.HP ---
Providers/Chief Complaint Admitting Physician: Oracio Corado MD Primary Care Provider: Randee Yung NP Chief Complaint: FO in throat History of Present Illness Georgie Corbett is a 58 year old female who presents with an impacted food bolus. She reports poor denture and she ate a pork steak last night. Patiently has experienced pain and difficulty swallowing ever since. Otherwise no relevant past medical history or past surgical history. Medications/Allergies Home Medications Medication Instructions Recorded Confirmed Last Taken Type albuterol sulfate 90 mcg/actuation 2 puff inhalation Q6H PRN 12/01/23 04/26/24 Unknown Rx aerosol inhaler shortness of breath or wheezing #6.7 grams umeclidinium 62.5 mcg-vilanterol 1 inh inhalation DAILY #60 ea 12/01/23 04/26/24 04/25/24 Rx 25 mcg/actuation powdr for inhalation (Anoro Ellipta) levothyroxine 25 mcg capsule 25 mcg PO DAILY #90 caps 12/02/23 04/26/24 04/26/24 Rx nicotine 21 mg/24 hr daily 1 patch transdermal DAILY #28 ea 04/21/24 04/26/24 Unknown Rx transdermal patch nitrofurantoin 100 mg PO Q12H 5 days #10 caps 04/21/24 04/26/24 04/25/24 Rx monohydrate/macrocrystals 100 mg capsule (Macrobid) Allergies Allergy/AdvReac Type Severity Reaction Status Date / Time No Known Allergies Allergy Verified 04/26/24 10:48 PFSH Acute PFSH: Medical History Fatigue Hypothyroidism COPD (chronic obstructive pulmonary disease) Surgical History H/O tubal ligation Family History Other Cancer Chronic kidney disease (CKD) Diabetes Hyperlipidemia Hypertension Lung disease Denies family history of CAD (coronary artery disease) Clotting disorder Dementia Psychiatric illness Suicide Anesthesia complication Bleeding disorder Family history of premature coronary artery disease Stroke Social History Smoking and tobacco/nicotine status: current every day tobacco/nicotine user cigarettes Packs smoked per day: 0.5 Years cigarettes smoked: 45 Alcohol intake: current Alcohol intake frequency: few times a week Alcohol type: beer Substance/Drug Use: never Lives independently: No Household members: none Marital status: / Vitals/I&O/Wt Last Vital Signs Temp 98.3 F 05/22/24 11:48 Pulse 79 05/22/24 11:48 Resp 15 05/22/24 11:48 BP 144/81 05/22/24 11:48 Pulse Ox 95 05/22/24 11:48 O2 Del Method Nasal Cannula 05/22/24 11:48 O2 Flow Rate 2 05/22/24 07:56 05/21/24 05/22/24 05/22/24 22:59 06:59 14:59 Intake Total 660 / 660 Balance 660 / 660 Weight last 48 hrs Weight 118 lb Weight 118 lb Physical Exam Narrative: Chest: Unlabored breathing room air. No lymphadenopathy. Heart: Regular rate and rhythm. Abdomen: Soft, nontender, nondistended. No masses or lymphadenopathy. A&P Assessment and plan (1) Food impaction of esophagus: Plan 58-year-old female who presents with an impacted food bolus. I have explained the risks and benefits of an EGD so that we can push the bolus into the stomach. She understand there is a high risk of aspiration and perforation. She agrees to proceed. Attestations Medical Necessity Statement*: treatment ongoing Coding Level of Care Code 50226 Diagnoses Food impaction of esophagus T18.128A; [id number].[id number] Time Spent (min) 30
--- NOTE | 2024-05-22 12:08 | ANES.PREANE2 ---
Pre-Anesthetic Assessment Height/Weight: Height 1.68 m Weight 53.524 kg Temp Pulse Resp BP Pulse Ox O2 Del Method O2 Flow Rate 98.3 F 79 15 144/81 95 Nasal Cannula 2 05/22/24 11:48 05/22/24 11:48 05/22/24 11:48 05/22/24 11:48 05/22/24 11:48 05/22/24 11:48 05/22/24 07:56 Operation Date: 05/22/24 12:00 Proposed Procedures p EGD(Not Applicable) - Oracio Corado MD Was Beta Ashu taken within 24 hours: N/A Social Alcohol and Tobacco Exam alert, oriented x 3, clear to auscultation bilaterally (initial exam showed diffuse coarse BS with post tussive clearing ) and regular rate & rhythm Airway Submandibular: Other (receeding mandible with marginal TMD) Cervical ROM: within normal limits Mallampati: Class III Pulmonary Chronic Obstructive Pulmonary Disease, Cough, Exertional Dyspnea and Shortness of Breath Metabolic Thyroid Disease Anesthetic Plan ASA status: 3E Anesthesia: General (RSI) Medications/Allergies Home Medications Medication Instructions Recorded Confirmed Last Taken Type albuterol sulfate 90 mcg/actuation 2 puff inhalation Q6H PRN 12/01/23 04/26/24 Unknown Rx aerosol inhaler shortness of breath or wheezing #6.7 grams umeclidinium 62.5 mcg-vilanterol 1 inh inhalation DAILY #60 ea 12/01/23 04/26/24 04/25/24 Rx 25 mcg/actuation powdr for inhalation (Anoro Ellipta) levothyroxine 25 mcg capsule 25 mcg PO DAILY #90 caps 12/02/23 04/26/24 04/26/24 Rx nicotine 21 mg/24 hr daily 1 patch transdermal DAILY #28 ea 04/21/24 04/26/24 Unknown Rx transdermal patch nitrofurantoin 100 mg PO Q12H 5 days #10 caps 04/21/24 04/26/24 04/25/24 Rx monohydrate/macrocrystals 100 mg capsule (Macrobid) Allergies Allergy/AdvReac Type Severity Reaction Status Date / Time No Known Allergies Allergy Verified 04/26/24 10:48 Current Medications Generic Name Dose Route Start Last Admin Trade Name Freq PRN Reason Stop Dose Admin Sodium Chloride 1,000 mls @ 100 mls/hr 05/22/24 04:51 05/22/24 11:36 Sodium Chloride 0.9% IV 0 mls/hr .Q10H CRISTINE Infusion Morphine Sulfate 4 mg 05/22/24 04:51 05/22/24 11:24 Morphine 4 Mg/Ml Sdv 1 Ml IVP 4 mg Q4H PRN Administration SEVERE PAIN PFSH Anesthesia Medical History Fatigue Hypothyroidism COPD (chronic obstructive pulmonary disease) Surgical History H/O tubal ligation Family History Other Cancer Chronic kidney disease (CKD) Diabetes Hyperlipidemia Hypertension Lung disease Denies family history of CAD (coronary artery disease) Clotting disorder Dementia Psychiatric illness Suicide Anesthesia complication Bleeding disorder Family history of premature coronary artery disease Stroke Social History Smoking and tobacco/nicotine status: current every day tobacco/nicotine user cigarettes Packs smoked per day: 0.5 Years cigarettes smoked: 45 Alcohol intake: current Alcohol intake frequency: few times a week Alcohol type: beer Substance/Drug Use: never Lives independently: No Household members: none Marital status: / Data Anesthesia Cardiac Studies: No Data to Display
== END 2024-05-22 15:18 | disposition home or self-care (01) ==
LOC: ER 05-22 02:26 → MEDSURG 05-22 04:11
PROVIDERS: Admitting Provider Student in an Organized Health Care Education/Training Program; Emergency Provider Emergency Medicine; PCP Nurse Practitioner Family; Visit Provider Student in an Organized Health Care Education/Training Program
PROC: 0DJ08ZZ Inspection of Upper Intestinal Tract, Via Natural or Artificial Opening Endoscopic (ICD-10-PCS; CPT 43235; principal; 2024-05-22 12:00)
DX: T18.128A Food in esophagus causing other injury, initial encounter (principal); W44.F3XA Food entering into or through a natural orifice, initial encounter; E03.9 Hypothyroidism, unspecified; J44.9 Chronic obstructive pulmonary disease, unspecified; F17.210 Nicotine dependence, cigarettes, uncomplicated
CPT/HCPCS: 43247; 96361; 96374; 96375; 96376; 99285; G0378; J0330; J1610; J1630; J2250; J2270; J2704; J7030

== ENCOUNTER → 2024-07-28 10:39 | Outpatient (BNVA) | payer MEDICAID, SELFPAY | PROVIDERS: PCP Nurse Practitioner Family | DX: R39.9 Unspecified symptoms and signs involving the genitourinary system (principal) | CPT/HCPCS: 81000 ==

== ENCOUNTER → 2024-08-05 11:09 | Outpatient (BNVA) | payer MEDICAID, SELFPAY | PROVIDERS: PCP Nurse Practitioner Family; Visit Provider Family Medicine | DX: R39.9 Unspecified symptoms and signs involving the genitourinary system (principal); S52.501D Unspecified fracture of the lower end of right radius, subsequent encounter for closed fracture with routine healing; S52.601D Unspecified fracture of lower end of right ulna, subsequent encounter for closed fracture with routine healing; N39.0 Urinary tract infection, site not specified; X58.XXXD Exposure to other specified factors, subsequent encounter | CPT/HCPCS: 81000 ==

== ENCOUNTER → 2024-08-10 13:11 | Outpatient (BNVA) | payer MEDICAID, SELFPAY | PROVIDERS: PCP Nurse Practitioner Family; Visit Provider Nurse Practitioner Women's Health | DX: Z01.419 Encounter for gynecological examination (general) (routine) without abnormal findings; N39.0 Urinary tract infection, site not specified; R52 Pain, unspecified; N94.9 Unspecified condition associated with female genital organs and menstrual cycle; A60.1 Herpesviral infection of perianal skin and rectum; N89.8 Other specified noninflammatory disorders of vagina | CPT/HCPCS: 87529 ==

== ENCOUNTER → 2024-10-04 12:41 | Outpatient (BNVA) | payer MEDICAID, SELFPAY | PROVIDERS: PCP Nurse Practitioner Family; Visit Provider Family Medicine | DX: J40 Bronchitis, not specified as acute or chronic | CPT/HCPCS: 87400 ==

== ENCOUNTER 2025-08-15 10:58 | Outpatient (CLI) | payer MEDICAID, SELFPAY | END 2025-08-15 10:59 | disposition home or self-care (01) | LOC: LAB 08-18 06:51 | PROVIDERS: PCP Family Medicine; Visit Provider Family Medicine | DX: E03.9 Hypothyroidism, unspecified (principal); Z13.6 Encounter for screening for cardiovascular disorders | CPT/HCPCS: 80053; 80061; 82607; 84439; 84443; 85025 ==

== ENCOUNTER 2025-08-15 14:37 | Outpatient (CLI) | payer MEDICAID, SELFPAY ==
--- NOTE | 2025-08-15 14:43 | XRR_ITS ---
PROCEDURE INFORMATION: Exam: XR Left Ankle Exam date and time: 08/15/2025 3:01 PM Age: 60 years old Clinical indication: Pain; Ankle; Left; Additional info: Acute left ankle pain TECHNIQUE: Imaging protocol: Radiologic exam of the left ankle. Views: 3 or more views. COMPARISON: CR XR foot LT min 3V* [id number] 08/15/2025 3:01 PM FINDINGS: Bones/joints: No acute fracture or dislocation. Diffuse osseous demineralization. Soft tissues: Normal. XR/XR ankle LT min 3V* [id number] IMPRESSION: No acute fracture or dislocation.
--- NOTE | 2025-08-15 14:43 | XRR_ITS ---
PROCEDURE INFORMATION: Exam: XR Left Foot Exam date and time: 08/15/2025 3:01 PM Age: 60 years old Clinical indication: Left; History--x3-4 weeks dropped heavy object on foot and ankle, pain in anterior ankle; Additional info: Acute left foot pain TECHNIQUE: Imaging protocol: Radiologic exam of the left foot. Views: 3 or more views. COMPARISON: CR XR ankle LT min 3V* [id number] 08/15/2025 3:01 PM FINDINGS: Bones/joints: Mildly displaced fracture at the base of the 2nd metatarsal, which is at the Lisfranc articulation. Recommend MRI to further evaluate the Lisfranc joint. Diffuse osseous demineralization. Soft tissues: Normal. XR/XR foot LT min 3V* [id number] IMPRESSION: Mildly displaced fracture at the base of the 2nd metatarsal, which is at the Lisfranc articulation. Recommend MRI to further evaluate the Lisfranc joint.
== END 2025-08-15 14:38 | disposition home or self-care (01) ==
PROVIDERS: PCP Nurse Practitioner Family; Visit Provider Family Medicine
DX: M79.672 Pain in left foot (principal); S92.321A Displaced fracture of second metatarsal bone, right foot, initial encounter for closed fracture; X58.XXXA Exposure to other specified factors, initial encounter; M85.872 Other specified disorders of bone density and structure, left ankle and foot
CPT/HCPCS: 73610; 73630

== ENCOUNTER 2025-08-23 14:51 | Outpatient (CLI) | payer MEDICAID, SELFPAY ==
--- NOTE | 2025-08-23 15:15 | MR_ITS ---
WS: [id number] MRI LEFT FOOT WITHOUT CONTRAST. COMPARISON: Radiograph 08/15/2025 Multiplanar, multisequence imaging is performed without contrast. Acute fractures are identified involving the proximal second, third and fourth metatarsals. Fractures extend intra-articular. Marrow edema extends throughout a large portion of the second and third metatarsals. There is also small amount of marrow edema in the mid first metatarsal. There is surrounding soft tissue edema. There is additional mild marrow edema throughout all of the tarsal bones. No additional fractures. Alignment between the second metatarsal and the second cuneiform appears intact. The interosseous band of the Lisfranc ligament is identified extending from the cuneiform to the second metatarsal. The attachment of the band to the second metatarsal is associated with the fracture site which may be unstable. The ligament itself does contain some mild increased signal but is intact. The dorsal and plantar bands are less well visualized but no obvious defect. Small well-circumscribed cystic collection along the medial talus is probably a ganglion measuring 9 x 6 mm. No additional ligament or tendon injury identified. MR/MR foot LT wo con* [id number] IMPRESSION: 1. Acute nondisplaced fractures involving the proximal second, third and fourt h metatarsals. 2. Additional extensive marrow edema within the second and third metatarsals a nd to lesser extent the first metatarsal. Additional edema throughout the tarsa ls. The marrow edema not related to the fractures may be reactive marrow edema and stress related as the injury was 4 to 5 weeks ago. 3. The interosseous band of the Lisfranc ligament is identified. This band is intact but does insert into the proximal fracture site of the second metatarsal . As there has not been significant healing suspect there is some instability a t this level. Progression to the Lisfranc dislocation should be considered.
== END 2025-08-23 14:52 | disposition home or self-care (01) ==
LOC: RAD 14:54
PROVIDERS: PCP Family Medicine; Visit Provider Family Medicine
DX: S92.322A Displaced fracture of second metatarsal bone, left foot, initial encounter for closed fracture (principal); S92.332A Displaced fracture of third metatarsal bone, left foot, initial encounter for closed fracture; S92.342A Displaced fracture of fourth metatarsal bone, left foot, initial encounter for closed fracture; X58.XXXA Exposure to other specified factors, initial encounter; M79.89 Other specified soft tissue disorders
CPT/HCPCS: 73718

== ENCOUNTER 2025-08-24 13:53 | Outpatient (CLI) | payer MEDICAID, SELFPAY ==
--- NOTE | 2025-08-24 14:00 | MM_ITS ---
WS: [id number] BILATERAL 3D TOMOSYNTHESIS DIGITAL SCREENING MAMMOGRAPHY WITH CAD CLINICAL INFORMATION: screening HISTORY: Screening mammogram. No current complaints. COMPARISON: None. TECHNIQUE: Bilateral CC and MLO views. FINDINGS: Scattered fibroglandular densities bilaterally. No suspicious focal mass, asymmetry, calcifications, or architectural distortion. No evidence of malignancy. Intramammary lymph nodes RIGHT breast MM/MM scr BI tomosynthesis [id number] IMPRESSION: DENSITY: There are scattered areas of fibroglandular density. BI-RADS: 2 - Benign. FOLLOW UP: 1 Year Follow-up Recommend return to annual screening mammography.
== END 2025-08-24 13:54 | disposition home or self-care (01) ==
LOC: RAD 13:54
PROVIDERS: PCP Family Medicine; Visit Provider Family Medicine
DX: Z12.31 Encounter for screening mammogram for malignant neoplasm of breast (principal); R92.323 Mammographic fibroglandular density, bilateral breasts; R59.0 Localized enlarged lymph nodes
CPT/HCPCS: 77063; 77067

== ENCOUNTER 2025-08-26 14:42 | Outpatient (CLI) | payer MEDICAID, SELFPAY ==
--- NOTE | 2025-08-26 14:45 | CT_ITS ---
WS: [id number] LDCT LUNG CANCER SCREENING HISTORY: screening TECHNIQUE: Axial imaging performed from the apices to 1 cm below the costophrenic angles. Coronal and sagittal reformats are submitted with axial MIP series. All CT scans at [facility] use at least one of these dose optimization techniques: automated exposure control; mA and/or kV adjustment per patient size (includes targeted exams where dose is matched to clinical indication); or iterative reconstruction. DLP: 49.27 mGy.cm DIvol: Mean CTDIvol: 0.60 (mGy) COMPARISON: 04/28/2024 Diagnostic quality: Satisfactory Lungs: Hyperexpanded lungs. There are a few small pleural-based tags and a few calcifications. No new or growing nodule or mass. No endobronchial lesions. Heart: Normal size heart with no pericardial effusion.. Other findings: Mild atherosclerosis aorta. Normal size pulmonary artery. No adenopathy. No adrenal mass. Mild increased thoracic kyphosis. Osteopenia. CT/CT lung screening [id number] IMPRESSION: LUNG-RADS: 2-Benign Appearance or Behavior FOLLOW UP: 12 Month: Continue annual screening with LDCT OTHER FINDINGS (S MODIFIER): None.
== END 2025-08-26 14:43 | disposition home or self-care (01) ==
LOC: RAD 14:43
PROVIDERS: PCP Family Medicine; Visit Provider Family Medicine
DX: Z12.2 Encounter for screening for malignant neoplasm of respiratory organs (principal); F17.219 Nicotine dependence, cigarettes, with unspecified nicotine-induced disorders; J98.4 Other disorders of lung; I70.0 Atherosclerosis of aorta; M40.204 Unspecified kyphosis, thoracic region; M85.88 Other specified disorders of bone density and structure, other site
CPT/HCPCS: 71271

== ENCOUNTER → 2025-09-14 09:12 | Outpatient (BNVA) | payer OTHER, MEDICAID, SELFPAY | PROVIDERS: PCP Family Medicine; Visit Provider Podiatrist Foot & Ankle Surgery | DX: S92.345A Nondisplaced fracture of fourth metatarsal bone, left foot, initial encounter for closed fracture (principal); S92.335A Nondisplaced fracture of third metatarsal bone, left foot, initial encounter for closed fracture; S92.325A Nondisplaced fracture of second metatarsal bone, left foot, initial encounter for closed fracture; S93.622A Sprain of tarsometatarsal ligament of left foot, initial encounter; X58.XXXA Exposure to other specified factors, initial encounter | CPT/HCPCS: 73630 ==